=== PATIENT | male | born 1945 | race Caucasian/White ===

== ENCOUNTER 2017-09-12 08:22 | Emergency (ER) | payer MEDICARE ==
[~2017-09-12] VITALS: Ht 177.8 cm; Wt 89.4 kg
[~2017-09-12 08:22] MED LIST: ASPI-515 PO; LOSA25TA5 PO; SIMV20TA3 PO; TERA5CAP3 PO
[2017-09-12 08:23] VITALS: BP 136/81
[2017-09-12] MEDS ORDERED: PROPARACAINE OPHTH 0.5%, 15ML ONE (08:36)
[2017-09-12] MEDS ORDERED: ACYCLOVIR 800 MG TABLET PO ONE (09:30)
== END 2017-09-12 09:55 | disposition home or self-care (01) ==
LOC: ED 09:18
DX: B02.9 Zoster without complications (principal)
CPT/HCPCS: 99283